=== PATIENT | female | born 1955 | race Caucasian/White ===

== ENCOUNTER 2018-01-05 08:01 | Emergency (ER) | payer OTHER ==
[~2018-01-05] VITALS: Ht 162.6 cm; Wt 68.0 kg
[~2018-01-05 08:01] MED LIST: ASPIRIN EC325 M1 PO; CENTRUM SILVER1 EAC3 PO; FISH OIL 1,2001 EAC4 PO; FLAX SEED OIL1 EACH PO; HAIR, SKIN & N1 EAC1 PO; METHOCARBAMOL500 M2 PO; ODORLESS GARLI500 MG PO; PERCOCET PO; XARELTO10 M1 PO
[2018-01-05] MEDS ORDERED: NORCO 5-325 TA1 EACH PO (08:47)
[2018-01-05 09:06] VITALS: BP 148/74
== END 2018-01-05 09:07 | disposition home or self-care (01) ==
LOC: M.ERS 08:01
DX: S86.811A Strain of other muscle(s) and tendon(s) at lower leg level, right leg, initial encounter (principal); Z90.49 Acquired absence of other specified parts of digestive tract; Z88.5 Allergy status to narcotic agent; Z88.8 Allergy status to other drugs, medicaments and biological substances; X58.XXXA Exposure to other specified factors, initial encounter; Y93.89 Activity, other specified; Y92.89 Other specified places as the place of occurrence of the external cause; Y99.8 Other external cause status

== ENCOUNTER 2018-05-10 20:39 | Emergency (ER) | payer OTHER ==
[~2018-05-10] VITALS: Ht 165.1 cm; Wt 68.7 kg
[~2018-05-10 20:39] MED LIST changes: +NORCO 5-325 TA1 EACH PO
[2018-05-10] MEDS ORDERED: TRAMADOL 50 MG50 MG PO (21:38)
[2018-05-10 22:15] VITALS: BP 153/65
== END 2018-05-10 22:15 | disposition home or self-care (01) ==
LOC: M.ERS 20:39
DX: S42.302A Unspecified fracture of shaft of humerus, left arm, initial encounter for closed fracture (principal); W01.0XXA Fall on same level from slipping, tripping and stumbling without subsequent striking against object, initial encounter; Y93.89 Activity, other specified; Y92.89 Other specified places as the place of occurrence of the external cause; Y99.8 Other external cause status; Z88.5 Allergy status to narcotic agent